=== PATIENT | male | born 1990 | race Caucasian/White ===

== ENCOUNTER 2020-05-10 20:11 | Emergency (ER) | payer OTHER ==
[2020-05-10] MEDS ORDERED: POLYSPORIN OP3.5 GM OS (21:07)
== END 2020-05-10 21:20 | disposition home or self-care (01) ==
LOC: ER1 20:11
DX: S05.92XA Unspecified injury of left eye and orbit, initial encounter (principal); S05.02XA Injury of conjunctiva and corneal abrasion without foreign body, left eye, initial encounter; W22.8XXA Striking against or struck by other objects, initial encounter; Y92.009 Unspecified place in unspecified non-institutional (private) residence as the place of occurrence of the external cause; Z23 Encounter for immunization
CPT/HCPCS: 90471; 90715; 99283

== ENCOUNTER → 2021-07-07 | Outpatient (CLI) | payer OTHER ==
[~2021-07-07] MED LIST: POLYSPORIN OP3.5 GM OS
[2021-07-07 10:07] LABS: HEMOGLOBIN 14.3 gm/dl (14.0-17.5); RED BLOOD COUNT 4.83 M/UL (4.20-5.50); WHITE BLOOD COUNT 6.2 K/UL (4.5-11.0)
[2021-07-07 10:41] LABS: BUN/CREATININE RATIO 15 (0-10)
== END ==
LOC: LAB 09:46
PROVIDERS: Physician Assistant
DX: Z13.1 Encounter for screening for diabetes mellitus (principal); Z13.220 Encounter for screening for lipoid disorders; R53.83 Other fatigue; E55.9 Vitamin D deficiency, unspecified
CPT/HCPCS: 36415; 80053; 80061; 82607; 82746; 83036; 84439; 84443; 85025